=== PATIENT | female | born 1995 | race Caucasian/White ===

== ENCOUNTER 2024-01-02 00:15 | Emergency (ER) | payer OTHER, SELFPAY ==
--- NOTE | 2024-01-02 00:15 | DI.RAD_ITS ---
Exam(s) XR FOOT RT COMPLETE EXAM: XR FOOT RT COMPLETE CLINICAL HISTORY: trauma/twisted foot going down stairs. TECHNIQUE: 2D digital imaging was performed. COMPARISON: No exams were available for comparison FINDINGS: 3 views No evidence of fracture or diastasis of the Lisfranc joint. Accessory ossicles are noted on the medi al aspect of foot adjacent to the navicular tuberosity. Bone density normal. No osseous lesions nor erosions. No radiopaque foreign body. No PET planus. IMPRESSION: No acute osseous findings in the foot. DATA REPOSITORY: RADIATION DOSE DELIVERED:
[2024-01-02 00:20] VITALS: BP 129/81; PULSE 63; RESP 16; TEMP 36.1; O2SAT 98
--- NOTE | 2024-01-02 00:25 | W.ED.GENAD ---
Discharge Plan Disposition Patient Disposition: Home Condition: Good Discharge Details Clinical Impression: Sprain of right foot Primary Care Provider: Dominga Joiner ED Provider: Brandan Vidal Home Meds and New Rx's Prescriptions: No Action No Known Home Meds Discharge Instructions Instructions: Foot Sprain ED Additional Instructions: You were seen for a right foot injury. X-rays revealed no fracture or dislocation. We have placed you in a post op shoe for comfort. You may weight-bear as tolerated and use crutches as needed but should keep your foot elevated is much as possible. Ice on and off 4-5 times a day. Alternate acetaminophen with ibuprofen for pain. Follow-up with your primary care in 1 to 2 weeks for recheck. Return to ED for severe worsening pain, numbness, weakness. HPI General Mode of arrival: ambulatory. Date/Time Provider Initiated Documentation: 01/02/24 00:23. Limitations to Documentation: no limitations. Information obtained by: patient. HPI Narrative: Patient presents to ED with right foot pain. Patient twisted her foot/ankle going downstairs about 2 hours ago. She has had increasing pain, swelling, difficulty ambulating due to foot pain. She denies any knee or ankle pain. She denies any other injury. Related Data Home Medications ?Medication ?Instructions ?Recorded ?Confirmed Unknown [No Known Home Meds] 01/02/24 01/02/24 Allergies Allergy/AdvReac Type Severity Reaction Status Date / Time azithromycin (From Zithromax) AdvReac Intermediate Nausea Unverified 01/02/24 00:31 ciprofloxacin (From Cipro) AdvReac Intermediate Nausea Unverified 01/02/24 00:31 General Stated Complaint: Orthopedic JOSE DAVID: 3 Review of Systems Narrative: Per HPI Exam Narrative Exam Narrative: Const: WDWN female in NAD. VS per triage. HEENT: NC/AT. Normal facial exam. Neck: Supple. Trachea midline. Lungs: Normal respiratory effort. Neuro: A+O x 3. Normal speech, mentation. Cranial nerves II - XII grossly intact. No gross motor or sensory deficit. Ext: No C/C/E. No tenderness to the proximal fibula on the right. No lateral or medial malleoli tenderness involving the right ankle. Does have tenderness and swelling over the lateral dorsum of the right foot. Some tenderness involving the proximal fifth metatarsal. Normal DP pulse. Course Vital Signs Vital signs: Vital Signs Temperature 97.0 F L 01/02/24 00:20 Pulse 63 01/02/24 00:20 Respiratory Rate 16 01/02/24 00:20 Blood Pressure 129/81 01/02/24 00:20 Pulse Oximetry 98 01/02/24 00:20 Temperature 97.0 F L 01/02/24 00:20 Temperature Source Temporal Artery Scan 01/02/24 00:20 Pulse 63 01/02/24 00:20 Respiratory Rate 16 01/02/24 00:20 Blood Pressure 129/81 01/02/24 00:20 Blood Pressure Position Sitting 01/02/24 00:20 Pulse Oximetry 98 01/02/24 00:20 Oxygen Delivery Method Room Air 01/02/24 00:20 Oxygen Flow Rate 0 01/02/24 00:20 Pain Level 8 01/02/24 00:20 Medical Decision Making Patient presenting with right foot injury. Knee and ankle without pain or tenderness and normal range of motion. X-ray of the right foot ordered. Right foot x-ray per my read with no fracture or dislocation. Patient is unable to bear weight because of pain in that foot. Has fair amount of bruising and swelling and likely has significant foot sprain. Will place in a post op shoe, weight-bear as tolerated. Patient encouraged to keep her foot elevated, ice on and off, alternate acetaminophen with ibuprofen for pain. Follow-up with primary care in 1 to 2 weeks for recheck. Return precautions provided. Imaging Data Radiologic Study: Attestation: I personally reviewed and interpreted this imaging study as follows: Imaging: X-Ray My impression: X-ray of the right foot with no fracture or dislocation noted [facility] All Active Problems (Updated 01/02/24 @ 00:59 by Brandan Vidal MD) Sprain of right foot (Acute) Medical History No significant past medical history Surgical History No significant past surgical history Social History Smoking/Tobacco Use Status: Never Smoking risk assessment performed?: Yes Alcohol Intake: never Drug use: Never Substance use type: does not use Housing: apartment Do you feel safe at home: Yes Do you feel safe in your relationship?: Yes
--- NOTE | 2024-01-02 01:44 | DI.VRAD_ITS ---
PROCEDURE INFORMATION: Exam: XR Right Foot Exam date and time: 01/02/2024 12:42 AM Age: 28 years old Clinical indication: Pain; Right; Patient HX: Trauma/twisted foot going down stairs TECHNIQUE: Imaging protocol: Radiologic exam of the right foot. Views: 3 or more views. Total images: 3 COMPARISON: No relevant prior studies available. FINDINGS: Bones/joints: No significant bony or joint space abnormality. No fracture. Soft tissues: Unremarkable. IMPRESSION: No acute findings. Dictated and Authenticated by: Herve Grant MD. Ordering:ARABELLA Gipson MD
== END 2024-01-02 01:15 | disposition home or self-care (01) ==
LOC: ER 01:34
PROVIDERS: Emergency Provider Emergency Medicine; PCP Family Medicine
DX: S93.601A Unspecified sprain of right foot, initial encounter (principal); X50.0XXA Overexertion from strenuous movement or load, initial encounter
CPT/HCPCS: 29515; 99283; 73630